=== PATIENT | male | born 1950 | race Caucasian/White ===

== ENCOUNTER → 2022-01-30 10:14 | Outpatient (CLI) | payer OTHER, SELFPAY ==
--- NOTE | ~2022-01-30 | XR_ITS ---
EXAMINATION: XR chest 2V 01/30/2022 10:36 INDICATION: Bronchitis PROCEDURE: 2 view chest COMPARISON: 03/25/2011 FINDINGS: The lungs are clear. The cardiomediastinal silhouette is within normal limits. There are no pleural effusions. There is no pneumothorax suspected. IMPRESSION: 1: NO ACUTE CARDIOPULMONARY DISEASE. Reviewed, dictated and finalized at location B.
== END ==
PROVIDERS: PCP Internal Medicine; Visit Provider Internal Medicine
DX: J40 Bronchitis, not specified as acute or chronic (principal)
CPT/HCPCS: 71046

== ENCOUNTER 2022-07-10 10:09 | Emergency (ER) | payer OTHER, SELFPAY ==
--- NOTE | ~2022-07-10 | XR_ITS ---
XR hand RT min 3V DATE: 07/10/2022 10:33 INDICATION: Right hand pain for 2 weeks after injury TECHNIQUE: 3 views COMPARISON: None FINDINGS: Minimal osteoarthritis primarily at the distal interphalangeal joints. No fracture or dislocation, periosteal reaction or bone destruction is detected. No erosive change. N o chondrocalcinosis. IMPRESSION: Minimal osteoarthritis Reviewed, dictated and finalized at location A. ICAL OPERATIONS LEADER IMPRESSION: Minimal osteoarthritis
--- NOTE | 2022-07-10 10:11 | ED.UPPEXIN ---
HPI - Extremity Injury (Upper) General Stated Complaint: rt hand injury Time Seen by Provider: 07/10/22 10:11 Source: patient Mode of arrival: ambulatory Limitations: no limitations History of Present Illness HPI narrative: Mr. Rodriguez is a 71-year-old patient presenting to clinic today with complaints of a right hand injury/pain x2 weeks. He reports he has been having off and on hand swelling and stiffness. 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 Related Data Home Medications Medication Instructions Recorded Confirmed simvastatin 20 mg tablet 20 mg DAILY 07/10/22 07/10/22 Allergies Allergy/AdvReac Type Severity Reaction Status Date / Time iodine Allergy Unknown throat Verified 07/10/22 10:18 swelling shellfish derived Allergy Unknown throat Verified 07/10/22 10:18 swelling Shrimp Allergy Mild THROATS Uncoded 07/10/22 10:18 SWELLS Review of Systems Review of Systems: Pertinent positives per HPI. Patient denies any fever, chills, rash, headache, visual changes, dizziness, cough, runny nose, sore throat, shortness of breath, chest pain, palpitations, nausea, vomiting, diarrhea, constipation, abdominal pain, or any urinary issues. PMFSH Comments At the time of my signature, I reviewed and agree with the nursing past medical, surgical, social, and family history. There is no relevant family history pertinent to the patient complaint. Exam Narrative: General: Well-developed, well nourished, in no apparent distress Head: Normocephalic, atraumatic. Cardio: Regular rate and rhythm, s1 and s2 normal, no murmur appreciated. Resp: Clear to auscultation bilaterally, no rhonchi, rales, wheezing or rubs. Musculoskeletal: No deformity, mild swelling of the right hand when compared to the left hand, non-tender to palpation at this time, grossly normal range of motion, bilateral hand truck dispatcher strong and equal, muscle strength strong and equal, peripheral pulse strong, no edema, no cyanosis, normal gait and station Course Course Emergency Course: Portions of this record may have been created with voice recognition software. Level of Care: Express Care Visit Vital Signs Vital signs: Vital signs reviewed MDM - Extremity Injury (Upper) MDM Narrative Medical decision making narrative: At the time of visit patient is resting comfortably on exam table. Patient requesting x-ray. Patient has mild osteoarthritis of the D IP joints. Supportive measures were discussed with the patient he voiced understanding discharge instructions and agrees to treatment plan. Differential Diagnosis Differential diagnosis: Likely fracture of hand and other (Osteoarthritis, contusion hand) Discharge Plan Discharge Clinical Impression: Arthralgia of hand, right Patient Disposition: Home, Self-Care Condition: Stable Instructions: Antibiotic Form, Osteoarthritis (ED) Additional Instructions: Rest, ice, elevate May take Aleve or ibuprofen as needed for pain Follow-up with your PCP in 3-5 days if symptoms persist or sooner if they worsen Follow-up/Referrals: UNKNOWN,DOCTOR [Primary Care Provider] - Time of Disposition: 10:41 Quality NIHSS Nursing Documentation ED NIHSS nursing documentation: reviewed/agree
[2022-07-10 10:22] VITALS: BP 126/78; PULSE 68; RESP 18; TEMP 36.4; O2SAT 97
== END 2022-07-10 10:47 | disposition home or self-care (01) ==
PROVIDERS: Emergency Provider Nurse Practitioner Family
DX: M25.541 Pain in joints of right hand (principal)
CPT/HCPCS: 73130; 99203; G0463

== ENCOUNTER 2023-07-29 10:35 | Emergency (ER) | payer OTHER, SELFPAY ==
[2023-07-29 11:00] VITALS: BP 118/70; PULSE 79; RESP 16; TEMP 36.6; O2SAT 100
--- NOTE | 2023-07-29 11:58 | ED.GENADULT ---
HPI - General Adult General Chief complaint: Upper Respiratory Infection Stated complaint: Cold symptoms Source: patient Mode of arrival: ambulatory Limitations: no limitations History of Present Illness HPI narrative: Patient presents for evaluation of sick symptoms for last 8 days. Primary symptoms were sinus congestion and drainage. Drainage is thick yellow/green in appearance. He has experienced subjective fever, cough, and shortness of breath. No nausea, vomiting, diarrhea. He has several grandchildren that have had similar symptoms. He tried cetirizine for symptoms. Last few days he has developed redness and thick green drainage from both eyes. He has a little bit of blurred vision but when he wipes the drainage out of his eyes, visual disturbance resolves. He wears glasses but not contacts. He does not smoke. Related Data Home Medications Medication Instructions Recorded Confirmed simvastatin 20 mg tablet 20 mg DAILY 07/10/22 07/10/22 Allergies Allergy/AdvReac Type Severity Reaction Status Date / Time iodine Allergy Unknown throat Verified 07/29/23 11:11 swelling shellfish derived Allergy Unknown throat Verified 07/29/23 11:11 swelling Shrimp Allergy Mild THROATS Uncoded 07/29/23 11:11 SWELLS Review of Systems Review of Systems: CONSTITUTIONAL: reports subjective fever. Denies Chills EYES: Reports redness to both eyes with thick yellow/green drainage. Reports transient blurred vision that resolves once he wipes drainage from his eyes ENT: Reports sinus congestion and thick yellow/green drainage from his nares CARDIOVASCULAR: Denies chest pain, palpitations, or edema. RESPIRATORY: Reports cough. Denies SOB. GASTROINTESTINAL: Denies abdominal pain, nausea, vomiting, or diarrhea. GENITOURINARY: Denies dysuria or hematuria. SKIN: Denies rash or itching. MUSCULOSKELETAL: Denies back pain, joint pain, or myalgia. NEUROLOGIC: Denies headache, numbness, dizziness, or weakness. PSYCHIATRIC: Denies anxiety or depression. [facility] Past Medical History Medical History Hyperlipidemia Surgical History Surgical History No pertinent past surgical history Family History Family History Mother Family history non-contributory Social History Social History (Reviewed 07/29/23 @ 12:03 by Oleg Fischer, [facility], ) Substance use: never Living arrangements: with family Occupation/Education: retired Gender identity (if verbalized by the patient): Male Sexual Orientation (if Verbalized by the Patient): Straight or Heterosexual Spiritual care concerns: No Exam Narrative: GENERAL: Well-appearing, well-nourished, and in no acute distress. HEAD: Normocephalic, atraumatic. EYES: PERRLA and EOMI. bilateral conjunctival injection with tearing noted. ENT: There is thick yellow/green drainage in the nares. Mucous membranes moist. Oropharynx without tonsillar hypertrophy exudate or other lesions. Bilateral TMs pearly galaviz nonbulging NECK: Supple. No adenopathy or masses. No carotid bruits or JVD CHEST: Cough present on exam.Clear to auscultation. No respiratory distress. No wheezes rales or rhonchi HEART: Regular rate and rhythm. No murmur heard. Normal peripheral pulses. ABDOMEN: Soft, nontender, nondistended, normal active bowel sounds. EXTREMITIES: Normal range of motion. No edema. SKIN: Warm, dry, no rash. NEURO: No focal deficits. Alert and oriented x3. PSYCH: Normal mood and affect. Course Course Emergency Course: This is a 72-year-old male who presented for evaluation of sick symptoms. His COVID and influenza are negative. Exam is consistent bacteria sinusitis based upon characteristics of nasal discharge and presence of fever. Will discharge with Augmentin. Erythromycin for co
== END 2023-07-29 11:59 | disposition home or self-care (01) ==
PROVIDERS: Emergency Provider Nurse Practitioner
DX: H10.9 Unspecified conjunctivitis (principal); J01.00 Acute maxillary sinusitis, unspecified; Z20.822 Contact with and (suspected) exposure to COVID-19; E78.5 Hyperlipidemia, unspecified
CPT/HCPCS: 87426; 87804; 99213; C9803; G0463

== ENCOUNTER 2025-06-11 11:52 | Emergency (ER) | payer MEDICARE, OTHER, SELFPAY ==
--- NOTE | ~2025-06-11 | CT_ITS ---
CT HEAD NON-CONTRAST Clinical History: dizziness Comparison: None Technique: Unenhanced axial images skull base to vertex Coronal, sagittal reformats CT images acquired with automatic exposure control for dose reduction DLP: 681 mGy-cm Findings: Mild age-related atrophy. Sulci, ventricles: Unremarkable. No intracerebral hemorrhage. No evidence acute territorial infarct. No mass effect, midline shift. Bony calvarium intact. Visualized paranasal sinuses: Maxillary and ethmoid disease. Mastoid air cells: Clear. IMPRESSION: 1. No acute intracranial findings. Reviewed, dictated and finalized at location R.
--- NOTE | ~2025-06-11 | XR_ITS ---
Examination: XR chest 2V Clinical History: Dizziness Comparison: 01/30/2022 Technique: PA and Lateral Findings: Cardiomediastinal silhouette normal size and configuration. Lungs clear. No acute bony abnormality. IMPRESSION: 1. No acute cardiopulmonary findings. Reviewed, dictated and finalized at location R.
--- OUTSIDE RECORDS SUMMARY | 2025-06-11 11:00 | XMS_ITS | Encounter Summary ---
Author Organization [facility] Healthcare Address [address] [place] [address] Care Team Providers Care Sagger Maker Name Role Phone Patrick Mckeon MD Primary Care Provider [phone] Reason for Visit * Reason Comments Dizziness Started yesterday, d idn't feel right, but got worse today, coming and going, Vision is kind of blurry, takes longer to focus, Encounter Details Date Type Department Care Team (Late st Contact Info) Description 06/11/2025 11:00 AM CDT Office Visit [facility] at [address] [address] [place] [address] [place] [address] [address] [place] [address] Dizziness (Primary Dx); Visual changes; Abnormal feeling Social History Tobacco Use Types Packs/Day Years Used Date Smoking Tobacco: Former Cigarettes Q uit: 1977 Smokeless Tobacco: Never Alcohol Use Standard Drinks/Week Comments Yes 7 (1 standard drink = 0.6 oz pur e alcohol) AUDIT-C Answer Date Recorded Q1: How often do you have a drink containing alcohol? 4 or more times a week 03/23/2025 Q2: How many drinks containi ng alcohol do you have on a typical day when you are drinking? 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 Not on rosalio e Not on file documented as of this encounter Last Filed Vital Signs Vital Sign Reading Time Taken Comments Blood Pressure 122/80 06/11/2025 11:17 AM CDT Pulse 55 06/11/2025 11:17 AM CDT Temperature 36.7 C (98 F) 06/11/2025 11:08 AM CDT Respiratory Rate 18 06/11/2025 11:08 AM CDT Oxygen Saturation 97% 06/11/2025 11:08 AM CDT Inhaled Oxygen Concentration - - Weight 70.8 kg (156 lb) 06/11/2025 11:08 AM CDT Height 175.2 cm (5' 8.98) 06/11/2025 11:08 AM C DT Body Mass Index 23.05 06/11/2025 11:08 AM CDT documented in this encounter Plan of Treatment Not on file documented as of this encounter Procedures Procedure Name Priority Date/Time Associated Diagnosis Comments ORTHOSTATIC VITALS Routine 06/11/2025 11:36 AM CD T Dizziness documented in this encounter Results * Orthostatic Vitals (06/11/2025 11:36 AM CDT) William Fernando LINSEED OIL ORDER FILLER MONITOR VITAL SIGNS Final Resul t documented in this encounter Visit Diagnoses Diagnosis Dizziness- Primary Dizziness and giddiness Visual changes Abnormal feeling documented in this encounter Care Teams Sagger Maker Relationship Specialty Start Date End Date Patrick Mckeon MD PCP - General 10/21/17 documented as of this encounter
[2025-06-11 11:55] VITALS: BP 134/72; PULSE 52; RESP 18; TEMP 36.4; O2SAT 99
--- NOTE | 2025-06-11 11:56 | ECG_ITS ---
Test Date: 2025-06-11 12:00:52 Measurements Intervals [place] Rate: 51 P: 65 TN: 215 QRS: 61 QRSD: 82 T: 72 QT: 410 QTc: 380 Interpretive Statements SINUS BRADYCARDIA WITH FIRST DEGREE AV BLOCK BORDERLINE ECG No previous ECG available for comparison Electronically Signed On 06-11-2025 13:51:22 CDT by Robson Kimble D.O.
--- OUTSIDE RECORDS SUMMARY | 2025-06-11 11:56 | XMS_ITS | Encounter Summary ---
Author Organization [facility] Address [address] [place] [address] Care Team Providers Care Inspector Mechanical Name Role Phone Patrick Mckeon MD Primary Care Provider [phone] Encounter Details Date Type Department Care Team (Late st Contact Info) Description 05/11/2025 Results Follow-Up [facility] [address] [facility] [address] [place] [address] Patrick Mckeon MD [address] [facility] [address] [place] [address] GI - RESULT Social History Tobacco Use Types Packs/Day Years [...] on file Legal Sex Male 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
--- OUTSIDE RECORDS SUMMARY | 2025-06-11 11:57 | XMS_ITS | Clinical Summary ---
Author Organization [facility] Address [address] [place] [address] Care Team Providers Care Chicken Stuffer Name Role Phone Patricia Santana MD Primary Care Provider Allergies Active Allergy Reactions Criticality Noted Date Comments Iodine Unknown 10/30/2012 Shellfish-Derived Products Unknown 3 Medications simvastatin 20 MG tablet Take 1 tablet by mouth daily. 04/17/2012 Active Multiple Vitamin (MULTI-VITAMIN) tablet Active Cholecalciferol (VITAMIN D3) 50 MCG (1999 [place]) Tab Active methylPREDNISol one, MACK, 4 MG tabletIndicatio ns:Cough,Bronch itis 6 TABLETS ON DAY ONE, 5 TABLETS DAY TWO, 4 TABLETS DAY THREE, 3 TABLETS DAY FOUR, 2 TABLETS DAY FIVE, AND 1 TABLET DAY SIX 1 each 01/29/2022 Active Active Problems Problem Noted Date Diagnosed Date Arthritis of left knee 01/29/2022 Mild obstructive sleep apnea 10/28/2019 Sensorineural hearing loss, bilateral 09/23/2019 Low back pain, episodic 10/15/2017 Vitamin D deficiency 10/14/2014 Hyperlipidemia 10/30/2012 Immunizations Immunization Administration Dates Next Due Fluzone High Dose - >Age 65 (Prefilled Syringe) 05/13/2021,05/21/2020 Influenza (Generic) 05/13/2021,06/20/2015,2012 Influenza Adult (Generic) 05/24/2019,,06/14/2017,2015 Pneumococcal (Pneumovax 23) 03/05/2019 Shingrix 03/10/2020 Tdap (Generic) 03/05/2019 Family History Medical History Relation Comments Heart Disease Father Rheumatic Fever Father Multiple Sclerosis Mother Hyperlipidemia Sister Relation Status Comments Father Mother Sister Social History Tobacco Use Types Packs/Day Years Used Date Smoking Tobacco: Never Smokeless Tobacco: Never Tobacco Cessation:Counseling Given: Yes Comments:counseled by Dr Santana Alcohol Use Standard Drinks/Week Comments Yes 8.3 (1 standard drink = 0.6 oz p ure alcohol) about 5 a week Sex and Gender Information Value Date Recorded Sex Assigned at Not on file Legal Sex Male 8:19 PM CDT Gender Identity Not on file Sexual Orientation Not on file Last Filed Vital Signs Vital Sign Reading Time Taken Comments Blood Pressure 137/76 01/29/2022 11:10 AM CDT Pulse 89 01/29/2022 11:10 AM CDT Temperature 36.9 C (98.5 F) 01/29/2022 11:10 AM CDT Respiratory Rate 18 01/29/2022 11:10 AM CDT Oxygen Saturation 98% 01/29/2022 11:10 AM CDT Inhaled Oxygen Concentration - - Weight 72.8 kg (160 lb 9.6 oz) 01/29/2022 11:10 AM CDT Height 175.3 cm (5' 9) 01/29/2022 11:10 AM CDT Body Mass Index 23.72 01/29/2022 11:10 AM CDT Plan of Treatment Health Maintenance Due Date Last Done Comments Hepatitis C 1968 Pneumococcal Vaccine: 50+ Years (2 of 2 - PCV) 03/05/2020 03/05/2019 Zoster Vaccines (2 of 2) 05/05/2020 03/10/2020 COVID-19 Vaccine (5 - 2024- season) 2025 01/12/2022, 06/24/2021, 11/04/2020, Additional history exists Influenza Adult (#1) 2025 05/13/2021, 05/13/2021, 05/21/2020, Additional history exists RSV Immunization or 60+ Years (1 - 1-dose 75+ series) 2025 DTaP, Tdap and Td Vaccines (2 - Td or Tdap) 03/05/2029 03/05/2019 Colorectal Cancer Screening Colonoscopy (10 Years) 06/18/2029 06/18/2019 Hepatitis A Vaccines Aged Out No long er eligible based on patient's age to complete this topic Meningococcal B Vaccine Aged Out No l onger eligible based on patient's age to complete this topic Meningococcal Vaccine Aged Out No karina mary jo eligible based on patient's age to complete this topic RSV Immunizations Under 20 Months Aged Out No longer eligible based on patient's age to complete this topic Procedures Procedure Name Priority Date/Time Associated Diagnosis Comments COLONOSCOPY GENERIC (SCAN ORDER) 06/18/2019 from Last 3 Months or Most Recently Relevant to Health Maintenance Results * COLONOSCOPY GENERIC (06/18/2019) 06/18/2019 Narrative 06/18/2019 Ordered by an unspecified provider. us Documents Scanned SCANNING Final Result from Last 3 Months or Most Recently Relevant to Health Maintenance Insurance Care Teams Chicken Stuffer Relationship Specialty Start Date End Date Patricia Santana MD [address] [facility] [address] [place] [address] PCP - General INTERNAL MEDICINE 01/29/22
--- OUTSIDE RECORDS SUMMARY | 2025-06-11 11:57 | XMS_ITS | Clinical Summary ---
Author Organization [facility] Address [address] [place] [address] Care Team Providers Care Machine Operator Packaging Name Role Phone Patrick Mckeon MD Primary Care Provider [phone] Allergies Active Allergy Reactions Criticality Noted Date Comments Iodine Rash Medium 10/30/2012 Shellfish Rash Medium 10/30/2012 Shellfish Containing Products Other (See comments),Anaphylaxis Reaction: THROAT TIGHTNESS, THROAT SWELLING, Medications polymyxin B-trimethoprim (POLYTRIM) ophthalmic solution 07/29/20 19 Active multivitamin tablet Take by mouth Active cholecalciferol (VITAMIN D-3) 2,000 unit tablet Take by mouth Active simvastatin (ZOCOR) 20 mg tabletIndications: Hyperlipidemia, unspecified hyperlipidemia type TAKE 1 TABLET(20 MG) BY MOUTH DAILY 90 tablet 3 06/07/20 25 Active simvastatin (ZOCOR) 20 mg tabletIndications: Hyperlipidemia, unspecified hyperlipidemia type Take 1 tablet (20 mg total) by mouth daily 90 tablet 3 03/23/20 25 025 Discontinued Active Problems Problem Noted Date Diagnosed Date 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 at [address] [address] William Fernando NP Dizziness (Primary Dx); Visual changes; Abnormal feeling 06/02/2025 9:30 AM CDT Office Visit [facility] Medicine Oncology [facility] Floor 6 [place] [address] Manpreet marginal zone B-cell lymphoma (HCC) (Primary Dx) 06/02/2025 8:45 AM CDT Lab [facility] [place] - Lab Collection [address] [facility] Floor [address] [place] [address] Manpreet marginal zone B-cell lymphoma (HCC) 06/02/2025 8:30 AM CDT Lab [facility] Oncology Lab [address] [facility] Floor 6 [place] [address] Manpreet marginal zone B-cell lymphoma (HCC) 05/16/2025 Orders Only [facility] [address] [place] [address] [place] [phone] Patrick Mckeon MD Colon cancer screening (Primary Dx) 05/11/2025 [facility] [address] [place] [address] [place] [phone] Patrick Mckeon MD GI - RESULT 05/09/2025 Orders Only [facility] [address] [place] [address] [place] [phone] Patrick Mckeon MD 04/07/2025 Results Follow-Up [facility] [address] [place] [address] [place] [phone] Patrick Mckeon MD Lipid panel, PSA screen, Thyroid Function [place], T4, free 03/29/2025 Orders Only [facility], Provider 03/23/2025 9:00 AM CDT Office Visit [facility] [address] [place] [address] [place] [phone] Patrick Mckeon MD Encounter for wellness examination in adult (Primary Dx); Hyperlipidemia, unspecified hyperlipidemia type; Manpreet marginal zone B-cell lymphoma (HCC); Mild obstructive sleep apnea; Subclinical hypothyroidism from Last 3 Months Immunizations Immunization Administration Dates Next Due Influenza LAIV (Nasal) 05/25/2022 Influenza, Quadrivalent, Hig h Dose, Preservative Free, Intrr 05/23/2023,05/13/2021,05/21/2020 Influenza, Quadrivalent, Spl it, Preservative Free, Intramuscular 06/20/2022 Influenza, Trivalent, Adjuva nted, Intramuscular 05/27/2025,06/22/2024 Influenza, Trivalent, High D ose, Split, Preservative Free, Intramuscular 05/24/2019,06/07/2018,06/14/2017,06/10 Influenza, Trivalent, Preser vative Free, Intramuscular 06/20/2015 Influenza, Unspecified 05/13/2021,2018,05/24/2019,06/07,06/14/2017,06/11/2016,06/20/2015 ,06/18/2013 Moderna SARS-CoV-2 Monovalen t Vaccination (12+ YRS) 01/12/2022,06/24/2021,11/04/2020,10/07 Moderna Sars-cov-2 Bivalent Vaccine 50 Mcg/0.5 mL (12+ YRS)-Blue/Camacho 05/19/2022 Pneumococcal Conjugate Pcv20 07/25/2023 Pneumococcal Polysaccharide PPV23 03/05/2019 RSV Vaccine, Pref, Recombina nt, Subunit, Adjuvanted, PF, IM (Arexvy) 08/20/2023 Tdap 03/05/2019 ZOSTER Recombinant 03/02/2023,11/20/2022, 020 Surgical History Surgery Date Site/Laterality Comments TONSILLECTOMY INGUINAL HERNIA REPAIR Right in infancy CARDIAC CATHETERIZATION 08/25/2012 - 08/24/2013 clean per patient report. 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 Gender Identity Not on file Sexual Orientation Not on file 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 Not on file Not on rosalio e Not on file Obstetrics History Last Filed Vital Signs Vital Sign Reading [...] Mass Index 23.05 06/11/2025 11:08 AM CDT Plan of Treatment Health Maintenance Due Date Last Done Comments Colon Cancer Screening-Colonoscopy 1950 Fall Risk Assessment 1950 Depression Screening 03/24/2025 03/24/2024, 03/24/20 24 Well Visit 65+ 03/23/2026 03/23/2025, 02/24, 03/17/2023, Additional history exists DTaP/Tdap/Td Vaccine (2 - Td or Tdap) 03/05/2029 03/05/2019 Hepatitis B Screening Completed 05/09/2022 Hepatitis C Screening Completed 05/09/2022, 022 Zoster Vaccine Completed 03/02/2023, 10/24, 03/10/2020 Pneumococcal vaccine 65+ Completed 07/25/2023, 02/22 Abdominal Aortic Aneurysm (A AA) Screen Completed 12/02/2024, 04/19/2022 Prostate Cancer Screening-PSA Discontinued , 03/24/2024, 03/17/2023, Additional history exists Covid-19 Vaccine Completed 05/23/2025, , 08/22/2023, Additional history exists Influenza Vaccine Completed 05/27/2025, , 05/23/2023, Additional history exists Procedures Procedure Name Priority Date/Time Associated Diagnosis Comments ORTHOSTATIC VITALS Routine 06/11/2025 11 :36 AM CDT Dizziness EGFR Routine 06/02/2025 8:47 AM CDT Manpreet marginal zone B-cell lymphoma (HCC) COMPREHENSIVE METABOLIC PANEL Routine 06/02/2025 8:47 AM CDT Manpreet marginal zone B-cell lymphoma (HCC) LACTATE DEHYDROGENASE Routine 06/02/2025 8:47 AM CDT Manpreet marginal zone B-cell lymphoma (HCC) DIFFERENTIAL AUTO Routine 06/02/2025 8:4 2 AM CDT Manpreet marginal zone B-cell lymphoma (HCC) CBC WITH AUTO DIFFERENTIAL Routine 06/02/2025 8:42 AM CDT Manpreet marginal zone B-cell lymphoma (HCC) GI - RESULT 05/09/2025 2:47 PM CDT SLEEP LAB/STUDY - RESULT 03/29/2025 4:58 PM CDT T4, FREE Routine 03/28/2025 7:39 AM CDT THYROID FUNCTION CASCADE Routine 03/28/2025 7:39 AM CDT PSA SCREEN Routine 03/28/2025 7:39 AM CDT Encounter for wellness examination in adult LIPID PANEL Routine 03/28/2025 7:39 AM CDT Encounter for wellness examination in adult POCT URINALYSIS, AUTO W/O SCOPE Routine 03/23/2025 9:48 AM CDT Encounter for wellness examination in adult CT CHEST ABDOMEN PELVIS WO CONTRAST Schedule CHENG, Read CHENG (Appt Today, Awaiting Results) 12/02/2024 7:53 AM CDT Manpreet marginal zone B-cell lymphoma (HCC) HEPATITIS C ANTIBODY Routine 05/09/2022 2:47 PM CDT B-cell lymphoma, unspecified B-cell lymphoma type, unspecified body region (HCC) from Last 3 Months or Most Recently Relevant to Health Maintenance Results * Orthostatic Vitals (06/11/2025 11:36 AM CDT) William Fernando DIRECTOR OF ANCILLARY SERVICES MONITOR VITAL SIGNS Final Resul t * eGFR (06/02/2025 8:47 AM CDT) eGFR 83 >=60 mL/min/1. 73 m2 Comment: Interpretive Data Reference Interval Normal >/= 90 mL/min/1.73m2 Mildly decreased* 60 - 89 mL/min/1.73m2 Mildly to moderately decreased 45 - 59 mL/min/1.73m2 Moderately to severely decreased 30 - 44 mL/min/1.73m2 Severely decreased 15 - 29 mL/min/1.73m2 Kidney Failure < 15 mL/min/1.73m2 *Relative to young adult level Estimated glomerular filtration rate is determined by the 2020 CKD-EPI equation recommended by the National Kidney Foundation (A Unifying Approach to GFR Estimation: Recommendations of the NKF-ASK Task Force on Reassessing the Inclusion of Race in Diagnosing Kidney Disease, JASN 202). The CKD-EPI equation should not be used for patients with unstable renal function and has not been validated in children and those over 70. Current interpretive data was last reviewed 2021. Blood 06/02/2025 8:47 AM CDT 06/02/2025 9:01 AM CDT Sonia Valentine MD LAB BLOOD ORDERABLES Final Result [facility] Department [place] [address] * Lactate dehydrogenase (LD) (06/02/2025 8:47 AM CDT) Lactate dehydrogenase (LDH) 178 100 - 250 Units/L Blood 06/02/2025 8:47 AM CDT 06/02/2025 9:01 AM CDT Sonia Valentine MD LAB BLOOD ORDERABLES Final Result Performing Organization Address [facility] Co de Phone Number MIA [facility] Department [place] [address] * Comprehensive metabolic panel (06/02/2025 8:47 AM CDT) Pathologist [facility] Sodium 143 135 - 145 mmol/L Potassium, pl 4.3 3.3 - 4.9 mmol/L [facility] Chloride 106 97 - 110 mmol/L [facility] CO2 30 22 - 32 mmol/L [facility] Anion gap 7 2 - 15 mmol/L [facility] BUN 20 6 - 25 mg/dL [facility] Creatinine 0.96 0.80 - 1.30 mg/dL [facility] Glucose 100 70 - 199 mg/dL [facility] Comment: Interpretive Data Fasting glucose >/= 126 mg/dl is diagnostic for diabetes. Fasting is defined as no caloric intake for at least 8 hours. Fasting glucose between 100 mg/dl to 125 mg/dl is diagnostic of prediabetes. In a patient with classic symptoms of hyperglycemia or hyperglycemic crisis, a random glucose >/= 200 mg/dl is diagnostic for diabetes. In the absence of unequivocal hyperglycemia, results should be confirmed by repeat testing. The classification and Diagnosis of Diabetes Diabetes Care 2021; 46: S19-S40. Current interpretive data was last revised 2022. Calcium 9.1 8.5 - 10.3 mg/dL [facility] Bilirubin, total 0.7 0.1 - 1.2 mg/dL [facility] Protein, pl 6.8 6.5 - 8.5 g/dL [facility] Albumin 4.2 3.5 - 5.0 g/dL [facility] Alk phos 90 40 - 130 Units/L [facility] ALT 20 7 - 55 Units/L [facility] AST 27 10 - 50 Units/L [facility] Blood 06/02/2025 8:47 AM CDT 06/02/2025 9:01 AM CDT us Sonia Valentine MD LAB BLOOD ORDERABLES Final Result [facility] Department [place] [address] * Differential, auto (06/02/2025 8:42 AM CDT) Neutrophil abs 3.75 1.50 - 6.50 K/cumm Comment:Testing performed by : [facility], [address] [place] [phone] Lymphocyte abs 1.50 0.80 - 3.30 K/cumm CERNURA BJ Comment:Testing performed by : [facility], [address] [place], [place] [phone] Monocyte abs 0.45 0.20 - 0.80 K/cumm CERNURA BJ Comment:Testing performed by : [facility], [address] [place] [phone] Eosinophil abs 0.41 0.00 - 0.50 K/cumm CERNURA BJ Comment:Testing performed by : [facility], [address] [place] [phone] Basophil abs 0.07 0.00 - 0.10 K/cumm CERNURA BJ Comment:Testing performed by : [facility], [address] [place] [phone] Neutrophil pct 60.8 % [facility] Comment: Interpretive Data Percent cell count reference ranges are not reported, since discordance with absolute values may lead to misinterpretation of CBC data. Current Interpretive Data was last revised on 2017. Testing performed by: [facility], [address] [place] [phone] Lymphocyte pct 24.3 % CERNER BJ Comment: Interpretive Data Percent cell count reference ranges are not reported, since discordance with absolute values may lead to misinterpretation of CBC data. Current Interpretive Data was last revised on 2017. Testing performed by: [facility], [address] [place] [phone] Monocyte pct 7.2 % [facility] BJ Comment: Interpretive Data Percent cell count reference ranges are not reported, since discordance with absolute values may lead to misinterpretation of CBC data. Current Interpretive Data was last revised on 2017. Testing performed by: [facility], [address] [place] [phone] Eosinophil pct 6.6 % CERNURA BEE Comment: Interpretive Data Percent cell count reference ranges are not reported, since discordance with absolute values may lead to misinterpretation of CBC data. Current Interpretive Data was last revised on 2017. Testing performed by: [facility], [address] [place] [phone] Basophil pct 1.1 % CERNURA BJ Comment: Interpretive Data Percent cell count reference ranges are not reported, since discordance with absolute values may lead to misinterpretation of CBC data. Current Interpretive Data was last revised on 2017. Testing performed by: [facility], [address] [place] [phone] Blood 06/02/2025 8:42 AM CDT 06/02/2025 8:56 AM CDT us Sonia Valentine MD LAB BLOOD ORDERABLES Final Result MIA BEE [facility] Department [place] [address] * CBC with auto differential (06/02/2025 8:42 AM CDT) WBC 6.17 3.80 - 9.90 K/cumm Comment:Testing performed by : [facility], [address] [place] [address] Hgb 13.7 13.0 - 17.5 g/dL CERNER BJ Comment:Testing performed by : [facility], [address] [place] [address] Hct 40.5 38.9 - 50.3 % CERNER BJ Comment:Testing performed by : [facility], [address] [place], [place] [phone] Plt 181 150 - 400 K/cumm CERNER BJ Comment:Testing performed by : [facility], [address] [place], [place] [phone] MPV 8.7 6.8 - 10.4 fL CERNER BJ Comment:Testing performed by : [facility], [address] [place] [address] RBC 4.47 4.30 - 5.80 M/cumm CERNER BJ Comment:Testing performed by : [facility], [address] [place] [address] MCV 90.6 81.3 - 96.4 fL CERNER BJ Comment:Testing performed by : [facility], [address] [place], [place] [phone] MCH 30.7 27.1 - 33.3 pg CERNER BJ Comment:Testing performed by : [facility], [address] [place] [address] MCHC 33.9 32.3 - 35.7 g/dL CERNER BJ Comment:Testing performed by : [facility], [address] [place] [address] RDW CV 12.9 11.1 - 14.9 % CERNER BJ Comment:Testing performed by : [facility], [address] [place] [address] NRBC abs 0.00 0.00 - 0.01 K/cumm CERNER BJ Comment:Testing performed by : [facility], [address] [place] [address] [place] [phone] Blood 06/02/2025 8:42 AM CDT 06/02/2025 8:56 AM CDT Sonia Valentine MD LAB BLOOD ORDERABLES Final Result Performing Organization Address City/[facility] [address]/ZIP Co de Phone Number MIA BEE [facility] Department [place] [address] * GI - RESULT (05/09/2025 2:47 PM CDT) Anatomical Region Laterality Modality Other Patrick Mckeon MD Final Res ult * SLEEP LAB/STUDY - RESULT (03/29/2025 4:58 PM CDT) us Provider Scanning Final Result * (ABNORMAL) Thyroid Function [place] (03/28/2025 7:39 AM CDT) TSH 5.86(H) 0.40 - 4.50 mIU/L [facility] 03/28/2025 7:39 AM CDT 03/28/2025 7:41 AM CDT Narrative [facility] - 03/29/2025 6:03 AM CDT FASTING:YES FASTING: YES Patrick Mckeon MD LAB BLOOD ORDERABLES Petty l Result Performing Organization Address City/[facility] [address]/ZIP Co de Phone Number [facility] [address] [place] [address] * PSA screen (03/28/2025 7:39 AM CDT) PSA 0.62 < OR = 4.00 ng/mL [facility] Comment: The total PSA value from this assay system is standardized against the WHO standard. The test result will be approximately 20% lower when compared to the equimolar-standardized total PSA (Anderson Syed). Comparison of serial PSA results should be interpreted with this fact in mind. This test was performed using the Siemens chemiluminescent method. Values obtained from different assay methods cannot be used interchangeably. PSA levels, regardless of value, should not be interpreted as absolute evidence of the presence or absence of disease. Blood 03/28/2025 7:39 AM CDT 03/28/2025 7:41 AM CDT Narrative [facility] - 03/29/2025 6:03 AM CDT FASTING:YES FASTING: YES Patrick Mckeon MD LAB BLOOD ORDERABLES Petty l Result Performing Organization Address [facility] [address]/[facility] de Phone Number QUEST [facility] [address] [place] [address] * T4, free (03/28/2025 7:39 AM CDT) [facility] Free T4 1.0 0.8 - 1.8 ng/dL [facility] 03/28/2025 7:39 AM CDT 03/28/2025 7:41 AM CDT Narrative [facility] - 03/29/2025 6:03 AM CDT FASTING:YES FASTING: YES Patrick Mckeon MD LAB BLOOD ORDERABLES Petty l Result Performing Organization Address [facility] [address]/[facility] de Phone Number [facility]ST [facility] [address] [place] [address] * (ABNORMAL) Lipid panel (03/28/2025 7:39 AM CDT) Pathologist [facility] Cholesterol 179 <200 mg/dL [facility] HDL 61 > OR = 40 mg/dL [facility] Triglycerides 69 <150 mg/dL [facility] LDL 102(H) mg/dL (calc) [facility] Comment: Reference range: <100 Desirable range <100 mg/dL for primary prevention; <70 mg/dL for patients with CHD or diabetic patients with > or = 2 CHD risk factors. LDL-C is now calculated using the Maribell calculation, which is a validated novel method providing better accuracy than the Friedewald equation in the estimation of LDL-C. Wale SS et al. STERLING. 2013;310(19): 2954-8529 (http://education.[employer]/faq/SZZ198) Chol/HDL ratio 2.9 <5.0 (calc) [facility] Non-HDL, (LDL+VLDL) 118 <130 mg/dL (calc) [facility] Comment: For patients with diabetes plus 1 major ASCVD risk factor, treating to a non-HDL-C goal of <100 mg/dL (LDL-C of <70 mg/dL) is considered a therapeutic option. Blood 03/28/2025 7:39 AM CDT 03/28/2025 7:41 AM CDT Narrative [facility] - 03/29/2025 6:03 AM CDT FASTING:YES FASTING: YES Patrick Mckeon MD LAB BLOOD ORDERABLES Petty l Result [facility] [address] [place] [address] * POCT UA, AUTO W/O SCOPE (03/23/2025 9:48 AM CDT) Color, Urine, POC Yellow Clarity, ur, POC Clear Clear Glucose, ur, POC Negative Negative Bilirubin, ur, POC Negative Negative Ketones, ur, POC Negative Negative Specific [place], POC 1.025 1.003 - 1.030 Blood, ur, POC Negative Negative pH, ur, POC 6.5 5.0 - 8.0 Protein, ur, POC Negative Negative Urobilinogen, Urine, POC 0.2 <2 MG/DL Leukocytes, ur, POC Negative Negative Nitrite, ur, POC Negative Negative Appearance, fld Clear Clear Urine 03/23/2025 9:48 AM CDT Patrick Mckeon MD POINT OF CARE TEST ORDERA BLES Final Result * CT chest abdomen pelvis without contrast (12/02/2024 7:53 AM CDT) Anatomical Region Laterality Modality Body N/A Computed Tomogra phy 12/02/2024 8:08 AM CDT Impressions 12/02/2024 8:31 AM CDT No lymphadenopathy in the chest, abdomen, or pelvis. Dictated by: Lawson Delong MD The radiology attending physician has personally reviewed this study, and had reviewed and/or edited this written report and agrees with it. Electronically signed by: Thien Malhotra M.D. Narrative 12/02/2024 8:31 AM CDT EXAMINATION: Computed tomography of the chest, abdomen and pelvis without intravenous contrast HISTORY: Marginal zone B-cell lymphoma TECHNIQUE: Transaxial computed tomographic images of the chest, abdomen and pelvis were obtained without intravenous contrast according to the standard protocol. COMPARISON: PET/CT 05/14/2023 FINDINGS: Chest: Heart size is at the upper limits of normal. Aortic valve and coronary artery calcifications. No pericardial effusion. No supraclavicular, axillary, or mediastinal lymphadenopathy. 5 mm triangular-shaped right middle lobe nodule, unchanged, compatible with intrapulmonary lymph node. No consolidation. No pleural effusion. No pneumothorax. Patent central airways. Abdomen/Pelvis: Normal liver. Cholelithiasis. Normal spleen without splenomegaly. Normal pancreas and adrenal glands. 5 mm nonobstructive left kidney lower pole stone. No hydronephrosis. Normal bladder. Colonic diverticulosis. No bowel dilatation. Normal appendix. Normal stomach. Normal caliber abdominal aorta with atherosclerotic calcifications. No lymphadenopathy in the abdomen or pelvis. No free fluid. No free air. Hemangioma in the left iliac bone. No suspicious osseous lesion. Multilevel degenerative changes of the spine. Procedure Note Thien Malhotra MD - 12/02/2024 EXAMINATION: Computed tomography of the chest, abdomen and pelvis without intravenous contrast HISTORY: Marginal zone B-cell lymphoma TECHNIQUE: Transaxial computed tomographic images of the chest, abdomen and pelvis were obtained without intravenous contrast according to the standard protocol. COMPARISON: PET/CT 05/14/2023 FINDINGS: Chest: Heart size is at the upper limits of normal. Aortic valve and coronary artery calcifications. No pericardial effusion. No supraclavicular, axillary, or mediastinal lymphadenopathy. 5 mm triangular-shaped right middle lobe nodule, unchanged, compatible with intrapulmonary lymph node. No consolidation. No pleural effusion. No pneumothorax. Patent central airways. Abdomen/Pelvis: Normal liver. Cholelithiasis. Normal spleen without splenomegaly. Normal pancreas and adrenal glands. 5 mm nonobstructive left kidney lower pole stone. No hydronephrosis. Normal bladder. Colonic diverticulosis. No bowel dilatation. Normal appendix. Normal stomach. Normal caliber abdominal aorta with atherosclerotic calcifications. No lymphadenopathy in the abdomen or pelvis. No free fluid. No free air. Hemangioma in the left iliac bone. No suspicious osseous lesion. Multilevel degenerative changes of the spine. IMPRESSION: No lymphadenopathy in the chest, abdomen, or pelvis. Dictated by: Lawson Delong MD The radiology attending physician has personally reviewed this study, and had reviewed and/or edited this written report and agrees with it. Electronically signed by: Thien Malhotra M.D. Sonia Valentine MD IMG CT PROCEDURES Final Re sult * Hepatitis C antibody (05/09/2022 2:47 PM CDT) Hep C Ab Nonreactive Nonreactive [facility] Comment:Antibodies to HCV no t detected. Does NOT exclude the possibility of recent exposure to HCV. Blood 05/09/2022 2:47 PM CDT 05/09/2022 2:55 PM CDT Sonia Valentine MD LAB MICROBIOLOGY - GENERAL ORDERABLES Edited Result - Final [facility] [place] [address] from Last 3 Months or Most Recently Relevant to Health Maintenance Insurance MEDICARE [employer] [place] MEDICARE REPLACED BY [facility] ACCESS Member Subscriber Plan / Payer (Ef fective 2020-Present) Name:VenkateshsanchezSanford Rick Relation to Subscriber:Self Name:Sanford Rodriguez Payer ID:[id number] (NAIC) Type:Switchcam Address: [address] [place] [address] MEDICARE [facility] [place] [address] MEDICARE [place] [employer] Care Teams Machine Operator Packaging Relationship Specialty Start Date End Date Patrick Mckeon MD PCP - General 10/21/17
--- OUTSIDE RECORDS SUMMARY | 2025-06-11 11:57 | XMS_ITS ---
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 Past Treatment and Therapy Plans No past plan information found. Lifetime Dose Tracking * Chemical Lifetime Dose Automatic Entry Manual Entr y DLP 1,384 mGycm 1,384 mGycm 0 mGycm
[2025-06-11 12:33] LABS: Hematocrit 41.7 % (42.0-52.0); Hemoglobin 13.7 g/dL (14.0-18.0); Immature Granulocyte Percent A 0.4 % (0-0.5); Lymphocytes Absolute Auto 1.06 K/mm3 (0.9-3.2); Mean Corpuscular HGB Conc 32.9 g/dl (32-36); Mean Corpuscular Hemoglobin 30.4 pg (26-34); Mean Corpuscular Volume 92.5 fl (80-100); Nucleated Red Blood Cells Absolute Auto 0.000 K/mm3 (0.0-0.012); Nucleated Red Blood Cells Perc 0.0 % (0.0-0.2); Platelet Count Result 159 k/mm3 (150-375); Red Blood Count 4.51 M/mm3 (4.6-6.20); White Blood Count 7.4 K/mm3 (4.5-10.0)
[2025-06-11 12:45] LABS: Add Urine Microscopic? YES; Appearance Urine Turbid (Clear); Glucose Urine UA Negative (Negative); Leukocyte Esterase Ur Negative LEU/UL (Negative); Nitrate Urine Negative (Negative); Non Pathogenic Casts 0-2; Specific Grav Ur 1.018 (1.001-1.035)
[2025-06-11 13:00] LABS: Alanine Aminotransferase 31 U/L (6-50); Albumin Level 4.0 g/dL (3.5-5.1); Alkaline Phosphatase 92 U/L (38-126); Anion Gap 3 mmol/L (4-12); Aspartate Amino Transferase 36 U/L (17-59); Bilirubin,Total 0.8 mg/dL (0.2-1.3); Blood Urea Nitrogen 22 mg/dL (9-20); Calcium 8.8 mg/dL (8.4-10.2); Carbon Dioxide 32 mmol/L (22-30); Chloride 103 mmol/L (98-107); Estimated CRCL calculation 67 ml/min; Estimated Glomerular Filt Rate > 60; Glucose 119 mg/dL (65-110); Potassium 4.2 mmol/L (3.4-5.0); Sodium 138 mmol/L (137-145); Total Protein 6.8 g/dL (6.3-8.2)
--- NOTE | 2025-06-11 14:16 | ED.GENADULT ---
HPI - General Adult General Chief complaint: Dizziness Stated complaint: Dizzy, Time Seen by Provider: 06/11/25 12:26 History of Present Illness HPI narrative: [age] old male presents to the emergency department for evaluation for onset of dizziness yesterday. Patient states he had been doing some projects around the house and felt fine and then later in the afternoon he has been having intermittent dizziness. Patient states he does not have a specific spinning sensation but is also not feeling like he is going to pass out. Patient does described having an unsteady gait. Patient denies any focal numbness or weakness. Patient denies any falls or injuries. Patient does have history of sinus congestion and allergies. Related Data Home Medications ?Medication ?Instructions ?Recorded ?Confirmed ?Last Taken ?Type simvastatin 20 mg tablet 20 mg DAILY 07/10/22 07/10/22 Unknown History Allergies Allergy/AdvReac Type Severity Reaction Status Date / Time iodine Allergy Unknown throat Verified 07/29/23 11:11 swelling shellfish derived Allergy Unknown throat Verified 07/29/23 11:11 swelling Shrimp Allergy Mild THROATS Uncoded 07/29/23 11:11 SWELLS Review of Systems Review of Systems: All systems reviewed & are unremarkable except as noted in HPI and below PMFSH Past Medical History Medical History (Updated 06/11/25 @ 16:08 by Ilan Almaguer MD) Hyperlipidemia Surgical History Surgical History No pertinent past surgical history Family History Family History Mother Family history non-contributory Social History Social History (Updated 07/29/23 @ 12:03 by RUPA Rizzo, ) Substance use: never Living arrangements: with family Occupation/Education: retired Gender identity (if verbalized by the patient): Male Sexual Orientation (if Verbalized by the Patient): Straight or Heterosexual Spiritual care concerns: No Exam Narrative: APPEARANCE: Well appearing, no pain, no distress, well-nourished. HEAD: normocephalic, atraumatic. EYES: PERRLA/EOMI, conjunctivae clear. NOSE: Normal no drainage EARS:TMS clear with good light reflex. THROAT: Pharynx clear, no exudate. NECK: Supple. No adenopathy, no masses. RESPIRATORY: Airway patent, respirations nonlabored. Clear to auscultation bilaterally, no rales, rhonchi, wheezing. CARDIOVASCULAR: Regular rate and rhythm without murmurs rubs or gallops. ABDOMINAL: Soft, nontender, nondistended, normal bowel sounds MUSCULOSKELETAL: Moves all extremities. Strength/ROM intact, No edema, No calf tenderness. NEURO: Alert. Cranial nerves II through XII intact. Good gait. Good coordination SKIN: Warm, dry. Normal Color Course Vital Signs Vital signs: Vital Signs Temperature 97.6 F 06/11/25 11:55 Pulse Rate 52 L 06/11/25 11:55 Respiratory Rate 18 06/11/25 11:55 Blood Pressure 134/72 06/11/25 11:55 Pulse Oximetry 99 06/11/25 11:55 Oxygen Delivery Room Air 06/11/25 11:55 Temperature 97.6 F 06/11/25 11:55 Pulse Rate 73 06/11/25 16:26 Respiratory Rate 17 06/11/25 16:26 Blood Pressure 117/64 06/11/25 16:26 Pulse Oximetry 99 06/11/25 16:26 Oxygen Delivery Room Air 06/11/25 11:55 Medical Decision Making MDM Narrative Medical decision making narrative: 74-year-old male present emergency department for evaluation for intermittent dizziness. Patient is currently afebrile with no leukocytosis hemoglobin 13.7. Patient has no significant acute abnormalities on his CMP UA was negative for infection. Patient had a negative chest x-ray and head CT showed no acute intracranial abnormality. EKG showed normal sinus rhythm. Patient was treated with p.o. meclizine and 1 L lactated Ringer's. On re-evaluation patient states he does feel improved. Patient was able to ambulate it is baseline and states he had some dizziness was significantly improved compared to the home. Patient will be provided additional meclizine for home. Patient was educated on the results of workup importance close follow-up in on reasons to return to the emergency department. All questions were addressed. Differential Diagnosis Differential Diagnosis: Vertigo, CVA, TIA, sinusitis, orthostatic hypotension, dehydration Vital Signs Vital Signs: Vital Signs Temperature 97.6 F 06/11/25 11:55 Pulse Rate 52 L 06/11/25 11:55 Respiratory Rate 18 06/11/25 11:55 Blood Pressure 134/72 06/11/25 11:55 Pulse Oximetry 99 06/11/25 11:55 Oxygen Delivery Room Air 06/11/25 11:55 Temperature 97.6 F 06/11/25 11:55 Pulse Rate 73 06/11/25 16:26 Respiratory Rate 17 06/11/25 16:26 Blood Pressure 117/64 06/11/25 16:26 Pulse Oximetry 99 06/11/25 16:26 Oxygen Delivery Room Air 06/11/25 11:55 Lab Data Lab results reviewed: Yes I reviewed the patient's lab results. 06/11/25 12:28 06/11/25 12:28 Labs: Lab Results 06/11/25 06/11/25 Range/Units 12:28 12:36 WBC 7.4 (4.5-10.0) K/mm3 RBC 4.51 L (4.6-6.20) M/mm3 Hgb 13.7 L (14.0-18.0) g/dL Hct 41.7 L (42.0-52.0) % MCV 92.5 (80-100) fl MCH 30.4 (26-34) pg MCHC 32.9 (32-36) g/dl RDW 12.3 (11.5-14.5) % Plt Count 159 (150-375) k/mm3 MPV 9.9 (7.4-10.4) fl Immature Gran % (Auto) 0.4 (0-0.5) % Neut % (Auto) 78.0 H (45.5-73.1) % Lymph % (Auto) 14.3 L (18.3-44.2) % Kay % (Auto) 4.6 (2.6-8.5) % Eos % (Auto) 1.9 (0-4.4) % Baso % (Auto) 0.8 (0.2-1.2) % Lymph # (Auto) 1.06 (0.9-3.2) K/mm3 Kay # (Auto) 0.3 (0.1-0.6) K/mm3 Eos # (Auto) 0.1 (0-0.3) K/mm3 Baso # (Auto) 0.1 (0.0-0.1) K/mm3 Abs Immat Gran (auto) 0.03 (0.00-0.031) K/mm3 Absolute Neuts (auto) 5.8 (1.3-6.7) K/mm3 Absolute Nucleated RBC 0.000 (0.0-0.012) K/mm3 Nucleated RBC % 0.0 (0.0-0.2) % Sodium 138 (137-145) mmol/L Potassium 4.2 (3.4-5.0) mmol/L Chloride 103 (98-107) mmol/L Carbon Dioxide 32 H (22-30) mmol/L Anion Gap 3 L (4-12) mmol/L BUN 22 H (9-20) mg/dL Creatinine 0.85 (0.7-1.3) mg/dL Estim Creat Clear Calc 67 ml/min Estimated GFR > 60 (59 - ) Glucose 119 H (65-110) mg/dL Calcium 8.8 (8.4-10.2) mg/dL Total Bilirubin 0.8 (0.2-1.3) mg/dL AST 36 (17-59) U/L ALT 31 (6-50) U/L Alkaline Phosphatase 92 (38-126) U/L Total Protein 6.8 (6.3-8.2) g/dL Albumin 4.0 (3.5-5.1) g/dL Urine Color Yellow (Yellow) Urine Appearance Turbid H (Clear) Urine pH 8.0 (5.0-9.0) Ur Specific [place] 1.018 (1.001-1.035) Urine Protein Negative (Negative) mg/dL Urine Glucose (UA) Negative (Negative) mg/dL Urine Ketones Negative (Negative) mg/dL Ur Blood (Man) Negative (Negative) Urine Nitrate Negative (Negative) Urine Bilirubin Negative (Negative) Urine Urobilinogen 1.0 (<2.0) mg/dL Leukocyte Esterase Rfl Negative (Negative) RAFAEL/UL Urine RBC 0-2 (0-2) /hpf Urine WBC 0-5 (0-3) /hpf Ur Squamous Epith Cells None seen (Few) /hpf Urine Bacteria None seen /hpf Urine Casts 0-2 Imaging Data Radiologist's impression: Impressions Head CT 06/11/25 13:08 IMPRESSION: 1. No acute intracranial findings. Chest X-Ray 06/11/25 13:10 IMPRESSION: 1. No acute cardiopulmonary findings. Discharge Plan Discharge Clinical Impression: Dizziness Patient Disposition: Home Condition: Stable Instructions: Antibiotic Form, Lightheadedness (ED), Dizziness (ED) Additional Instructions: Drink plenty of fluids. Meclizine as needed for vertigo control. Have close follow-up with your primary care physician. If you have any worsening symptoms then please call or return to emergency department. Patient Language: Nepali Prescriptions: New meclizine 25 mg tablet 25 mg PO BID PRN (Reason: dizziness) 7 Days Qty: 14 0RF No Action simvastatin 20 mg tablet 20 mg DAILY amoxicillin-pot clavulanate 875-125 mg tablet 1 tablet PO Q12H Qty: 20 0RF erythromycin 5 mg/gram (0.5 %) ointment 0.5 inch EACH EYE 6XD 7 Days Qty: 3.5 0RF Follow-up/Referrals: Mike,Patrick Khalil MD [Primary Care Provider, Unknown]
[2025-06-11] MEDS: MECLIZINE HCL 25 MG TABLET PO (14:56)
[2025-06-11] MEDS: SODIUM CHLORIDE 0.9% IV 1,000 ML 999 ML IV CONT (14:56)
[2025-06-11 16:26] VITALS: BP 117/64; PULSE 73; RESP 17; O2SAT 99
== END 2025-06-11 16:34 | disposition home or self-care (01) ==
PROVIDERS: Student in an Organized Health Care Education/Training Program; Emergency Provider Emergency Medicine; PCP Internal Medicine
DX: R42 Dizziness and giddiness (principal); E78.5 Hyperlipidemia, unspecified; Z79.899 Other long term (current) drug therapy; R00.1 Bradycardia, unspecified; I44.0 Atrioventricular block, first degree
CPT/HCPCS: 36415; 70450; 71046; 80053; 81001; 85025; 93005; 96360; 99284; A9270; J7030